=== PATIENT | male | born 1950 | race African-American/Black ===

== ENCOUNTER 2022-04-21 21:14 | Emergency (ER) | payer MEDICARE ==
[2022-04-21] MEDS ORDERED: EPINEPHrine 1 MG/10 ML Abboject SYRINGE ONE (21:20)
== END 2022-04-21 21:19 | disposition expired ==
LOC: ERS 21:14
DX: I46.9 Cardiac arrest, cause unspecified (principal); E11.9 Type 2 diabetes mellitus without complications; K21.9 Gastro-esophageal reflux disease without esophagitis; I10 Essential (primary) hypertension; Z86.73 Personal history of transient ischemic attack (TIA), and cerebral infarction without residual deficits
CPT/HCPCS: 92950; 96374; 96376; J0171